=== PATIENT | female | born 1995 | race Caucasian/White ===

== ENCOUNTER 2018-01-29 11:58 | Emergency (ER) | payer BC ==
[2018-01-29] MEDS: IBUPROFEN 600 MG TAB PO (12:46)
[2018-01-29 12:48] LABS: URINE PH (Dip) POC 7.5 (5.0-8.5)
[2018-01-29 12:48] LABS: URINE BLOOD (Dip) POC 1+ (NEGATIVE); URINE GLUCOSE (Dip) POC Negative (NEGATIVE); URINE KETONES (Dip) POC Negative (NEGATIVE); URINE LEUKOCYTE EST (Dip) POC Negative (NEGATIVE); URINE NITRITE (Dip) POC Negative (NEGATIVE); URINE TOTAL PROTEIN POC Negative (NEGATIVE)
== END 2018-01-29 15:02 | disposition home or self-care (01) ==
LOC: FTE 11:58
DX: R10.30 Lower abdominal pain, unspecified (principal); R10.2 Pelvic and perineal pain
CPT/HCPCS: 76775; 76830; 76856; 81003; 81025; 99285-25

== ENCOUNTER 2018-04-19 15:06 | Emergency (ER) | payer BC | END 2018-04-19 16:45 | disposition home or self-care (01) | LOC: FTE 15:06 | DX: J02.9 Acute pharyngitis, unspecified (principal); H66.93 Otitis media, unspecified, bilateral; H10.9 Unspecified conjunctivitis | CPT/HCPCS: 99283 ==